=== PATIENT | female | born 1990 | race Hispanic/Latino ===

== ENCOUNTER 2019-09-20 20:19 | Emergency (ER) | payer BC ==
[~2019-09-20] VITALS: Ht 170.2 cm; Wt 137.0 kg
--- OUTSIDE RECORDS SUMMARY | 2019-09-20 20:21 | XMS REPORT ---
[facility] Address Unknown Phone Unavailable Care Team Providers Care Microbiological Laboratory Technician Name Role Phone Unavailable Unavailable Payers Payer Name Policy Type Policy Number Effective Date Expiration Date Problems This patient has no known problems. Allergies, Adverse Reactions, Alerts Allergy Name Allergy Type Status Severity Reaction(s) Onset Date Inactive Date Treating Clinician Comments No Known Allergies DA Active U 2019-09-20 00:00:00 Penicillins DA Active U 2019-09-20 00:00:00 Medications This patient has no known medications.
[2019-09-20] MEDS ORDERED: VANCOMYCIN 1GM/NS 250 ML 250 ML IV ONE (21:15)
[2019-09-20] MEDS ORDERED: PIPER-TAZ 3.375 GM 50 ML IV ONE (21:15)
[2019-09-20 21:32] LABS: BASOPHILS % 0.5 % (0.0-1.0); EOSINOPHILS # (AUTO) 0.2 (0.0-0.4); EOSINOPHILS % 1.8 % (0.0-6.0); HEMOGLOBIN 12.9 g/dL (12.0-16.0); LYMPHOCYTES # (AUTO) 2.3 (1.0-3.2); MEAN CORPUSCULAR HGB CONC 33.1 g/dL (31-35); MEAN CORPUSCULAR VOLUME 78.6 fL (81-99); MONOCYTES # (AUTO) 0.4 (0.2-0.8); MONOCYTES % 4.4 % (4.4-11.3); NEUTROPHILS # (AUTO) 5.9 (2.1-6.9); NEUTROPHILS % 66.4 % (38.7-80.0); PLATELET COUNT 398 x10e3/uL (140-360); RED BLOOD COUNT 4.96 x10e6/uL (3.6-5.1); RED CELL DISTRIBUTION WIDTH 13.1 % (11.7-14.4)
[2019-09-20 21:51] LABS: ALANINE AMINOTRANSFERASE 30 IU/L (0-55); ALBUMIN 3.5 g/dL (3.5-5.0); ALBUMIN/GLOBULIN RATIO 0.8 (0.8-2.0); ALKALINE PHOSPHATASE 93 IU/L (40-150); ANION GAP 14.3 mmol/L (8-16); BLOOD UREA NITROGEN 16 mg/dL (7-26); BUN/CREATININE RATIO 18 (6-25); CALCIUM 9.4 mg/dL (8.4-10.2); CARBON DIOXIDE 25 mmol/L (22-29); CHLORIDE 102 mmol/L (98-107); CREATININE, SERUM 0.91 mg/dL (0.57-1.11); EST GLOMERULAR FILTRATION RATE > 60 ML/MIN (60-); GLUCOSE 307 mg/dL (74-118); POTASSIUM 4.3 mmol/L (3.5-5.1); SODIUM 137 mmol/L (136-145)
--- NOTE | 2019-09-20 22:30 | NUR ---
{null, INITIATED TRANSFER AT THIS TIME. SPOKE WITH JOSE LLANES, [employer]. }
[2019-09-20] MEDS ORDERED: ONDANSETRON HCL INJ 2MG/ML 2ML 2 MG/ML VIAL ONE (23:31)
== END 2019-09-21 00:16 | disposition other institution (70) ==
LOC: ER 20:19
DX: L02.416 Cutaneous abscess of left lower limb (principal); E11.9 Type 2 diabetes mellitus without complications
CPT/HCPCS: 36415; 80053; 85025; 87040; 99284; J2405; J2543; J3370

== ENCOUNTER 2021-12-30 20:31 | Emergency (ER) | payer BC ==
[~2021-12-30] VITALS: Ht 170.2 cm; Wt 137.0 kg
[2021-12-30] MEDS ORDERED: SODIUM CHLORIDE 0.9% 1000ML 1,000 ML IV STA ×2 (21:12→22:05)
[2021-12-30] MEDS ORDERED: ACETAMINOPHEN 325 MG TAB PO ONE (22:15)
[2021-12-30] MEDS ORDERED: ACETAMINOPHEN 325 MG TAB ONE (22:22)
[2021-12-30 22:23] LABS: BASOPHILS # (AUTO) 0.1 (0.0-0.1); BASOPHILS % 0.9 % (0.0-1.0); EOSINOPHILS # (AUTO) 0.5 (0.0-0.4); EOSINOPHILS % 3.4 % (0.0-6.0); HEMATOCRIT 40.5 % (34.2-44.1); LYMPHOCYTES % 6.8 % (18.0-39.1); MEAN CORPUSCULAR HEMOGLOBIN 24.5 pg (28-32); MEAN CORPUSCULAR HGB CONC 32.1 g/dL (31-35); MEAN CORPUSCULAR VOLUME 76.3 fL (81-99); MONOCYTES # (AUTO) 0.6 (0.2-0.8); MONOCYTES % 4.5 % (4.4-11.3); NEUTROPHILS # (AUTO) 11.1 (2.1-6.9); NEUTROPHILS % 79.1 % (38.7-80.0); PLATELET COUNT 403 x10e3/uL (140-360); RED BLOOD COUNT 5.31 x10e6/uL (3.6-5.1); RED CELL DISTRIBUTION WIDTH 13.5 % (11.7-14.4)
[2021-12-30 22:42] LABS: ALBUMIN 2.7 g/dL (3.5-5.0); ALBUMIN/GLOBULIN RATIO 0.6 (0.8-2.0); ANION GAP 19.5 mmol/L (8-16); CALCIUM 8.6 mg/dL (8.4-10.2); CREATININE, SERUM 0.96 mg/dL (0.57-1.11); POTASSIUM 3.5 mmol/L (3.5-5.1)
[2021-12-30 22:57] LABS: CREATINE KINASE MB 1.5 ng/mL (0-5.0)
[2021-12-30] MEDS ORDERED: IOPAMIDOL 370 MG/ML 100 ML INFUS..BTL INJ ONE (23:16)
[2021-12-31] MEDS ORDERED: BACTRIM 400-801 EACH PO (01:36)
[2021-12-31] MEDS ORDERED: CLEOCIN HCL300 MG PO (01:36)
[2021-12-31] MEDS ORDERED: IBUPROFEN 600 MG TAB PO STA (01:38)
[2021-12-31] MEDS ORDERED: IBUPROFEN 600 MG TAB ONE (01:49)
== END 2021-12-31 02:39 | disposition home or self-care (01) ==
LOC: ER 21:17
DX: L03.811 Cellulitis of head [any part, except face] (principal); E11.9 Type 2 diabetes mellitus without complications; Z20.822 Contact with and (suspected) exposure to COVID-19; Z88.0 Allergy status to penicillin
CPT/HCPCS: 36415; 70460; 71045; 80053; 82550; 82553; 83605; 83880; 84484; 84702; 85025; 87040; 93005; 99284; J7030; Q9967; U0002